=== PATIENT | female | born 1990 | race Caucasian/White ===

== ENCOUNTER 2021-03-20 12:01 | Emergency (ER) | payer OTHER, SELFPAY ==
[2021-03-20] VITALS (9 sets, daily range): BP systolic 112–138; BP diastolic 63–82; PULSE 90–105; RESP 15–23; TEMP 36.8; O2SAT 95–99; BMI 33.4
[2021-03-20 13:30] LABS: Amorphous Sediment Urine 1+; Bacteria Urine None Seen; Calcium Oxalate Crystals Urine Moderate; Culture Indicated Urine Cult Not Indicated; Mucus Urine 1+ (Negative); RBC Urine None Seen (0-5/HPF); Squamous Epithelial Cell Urine 1-5 /HPF (0-5/HPF); WBC Urine 0-1/HPF (0-5/HPF)
[2021-03-20] MEDS: ONDANSETRON 4 MG/2 ML INJ IV (13:37)
[2021-03-20 14:09] LABS: Add Manual Diff / Slide Review NO; Basophils Absolute Auto 0 /uL (0-100); Basophils Percent Auto 0.2 % (0-2); Eosinophils Absolute Auto 100 /uL (0-450); Eosinophils Percent Auto 0.3 % (2-4); Hematocrit 37.3 % (36-46); Lymphocytes Absolute Auto 900 /uL (1100-4500); Lymphocytes Percent Auto 4.9 % (25-40); Mean Corpuscular HGB Conc 32.1 % (30-36); Mean Corpuscular Hemoglobin 25.7 PG (26-34); Monocytes Absolute Auto 800 /uL (0-900); Monocytes Percent Auto 4.2 % (3-14); Neutrophils Absolute Auto 17400 /uL (1500-7000); Neutrophils Percent Auto 90.4 % (50-75); Platelet Count 324 X10^3/uL (150-400); Red Blood Cell Count 4.67 X10^6/uL (4.0-5.2); Red Cell Distribution Width 15.5 % (11.6-14.8); White Blood Cell Count 19.3 X10^3/uL (4.5-11.0)
[2021-03-20 14:17] LABS: Alanine Aminotransferase 11 IU/L (<35); Albumin 4.2 g/dL (3.5-5.0); Albumin Globulin Ratio 1.4 (1.0-2.8); Alkaline Phosphatase 72 U/L (38-126); Aspartate Aminotransferase 18 IU/L (14-36); BUN Creatinine Ratio 21.1 (6-22); Bilirubin Total 0.3 mg/dL (0.2-1.3); Blood Urea Nitrogen 12 mg/dL (7-17); Calcium 9.5 mg/dL (8.4-10.2); Carbon Dioxide 28 mmol/L (22-32); Chloride 102 mmol/L (98-107); Estimated Glomerular Filt Rate > 60.0 mL/min (>60); Globulin 3.1 g/dL (1.7-4.1); Glucose 120 mg/dL (70-100); HEMOLYSIS < 15 (0-50); Lipase 38 U/L (23-300); Potassium 4.5 mmol/L (3.4-5.1); Sodium 137 mmol/L (137-145); Total Protein 7.3 g/dL (6.3-8.2)
--- NOTE | 2021-03-20 15:24 | ED_ITS ---
HPI - Abdominal Pain General Chief Complaint: Abdominal Pain Stated Complaint: ABD Pain upper & lower Time Seen by Provider: 03/20/21 15:24 Source: patient Mode of arrival: Ambulatory Limitations: no limitations History of Present Illness HPI narrative: This is a 31-year-old female comes emergency department complaint of abdominal pain. Patient states she has had symptoms starting yesterday morning at 7:00 a.m. into today. Started out as generalized aching but has intermittently been twisting and worsening pain. Sort of throughout her entire abdomen. She has not had fevers or chills. She has had nausea and some dry heaves. She has had normal bowel movement in the last 24 hours. No black or bloody stools. No dysuria or frequency but she has had a sense of incomplete emptying. She states it just feels like there is pressure on top of her bladder. She also notes that when she has a bowel movement she has pain in her abdomen but not at the rectum. Patient notes she has had some increased discharge but no odor or change in coloration. She has not had any vaginal bleeding. She is about 14 months and had a at that time. She does have a history of ulcerative colitis. She states her last bad flare was in her 20s and was similar pain but she does recall if it was exactly like this. She is on mesalamine daily. Patient denies any allergies. No other surgeries. No to bacco, alcohol and occasionally uses THC but no other illicit drugs. Related Data Previous Rx's Medication Instructions Recorded doxycycline hyclate 100 mg tablet 100 mg PO BID #20 tab 03/20/21 hydrocodone 5 mg-acetaminophen 325 1 tab PO Q6H PRN #10 tab 03/20/21 mg tablet Allergies Allergy/AdvReac Type Severity Reaction Status Date / Time No Known Drug Allergies Allergy Verified 03/20/21 12:11 Review of Systems Review of Systems ROS Unobtainable: All systems reviewed & are unremarkable except as noted in HPI and below Patient History Social History Smoking Status: Unknown if ever smoked Smoking Status: Unknown if ever smoked alcohol intake frequency: holidays/special occasions only Substance Use Type: does not use Exam Narrative Exam Narrative: GENERAL: Alert and oriented x three, female in moderate distress. HEENT: Head normocephalic, atraumatic, EOMI, pupils reactive, face symmetric, m oist mucous membranes NECK: Supple, full range of motion CARDIOVASCULAR: Regular rate and rhythm without murmurs, rubs or gallops. RESPIRATORY: Breath sounds equal bilaterally, no wheezes rales or rhonchi. ABDOMEN: Soft, generalized tenderness. Normoactive bowel sounds all 4 quadrants. No guarding or rebound, rigidity, no mass : No CVA tenderness. Female: externa vaginal examl normal, no vaginal bleeding, positive for thick yellow discharge, no cervical motion tenderness, normal speculum exam, no adnexal tenderness/mass. Bimanual exam is normal, no enlarged uterus but patient does have midline uterine tenderness. She does not seem to be more tender on the left in compared to midline or right. Non-gravid. EXTREMITIES: Normal range of motion, no clubbing or edema. Neurovascularly i ntact NEUROLOGICAL: Cranial nerves II through XII grossly intact. Moving all extremities SKIN: Warm, dry, no petechiae, no rashes or lesions. Initial Vital Signs Initial Vital Signs: Vital Signs Temperature 98.2 F 03/20/21 12:09 Pulse Rate 105 H 03/20/21 12:09 Respiratory Rate 15 03/20/21 12:09 Blood Pressure 115/65 03/20/21 12:09 Pulse Oximetry 99 03/20/21 12:09 Course Orders Ordered: Discontinued Medications Ceftriaxone Sodium (Ceftriaxone 500 Mg Vial) 500 mg IM NOW ONE Stop: 03/20/21 17:10 Last Admin: 03/20/21 17:35 Dose: 500 mg Documented by: TESSIE Doxycycline Hyclate (Doxycycline Hyclate 100 Mg Tablet) 100 mg PO NOW ONE Stop: 03/20/21 17:10 Last Admin: 03/20/21 17:21 Dose: 100 mg Documented by: TESSIE Sodium Chloride (Normal Saline 0.9%) 1,000 mls @ 1,000 mls/hr IV BOLUS ONE Stop: 03/20/21 16:31 Last Infusion: 03/20/21 17:23 Dose: 0 mls/hr Documented by: Admin: 03/20/21 15:40 Dose: 1,000 mls/hr Documented by: JEFFREY Ketorolac Tromethamine (Ketorolac 30 Mg/Ml Vial) 30 mg IV NOW ONE Stop: 03/20/21 15:33 Last Admin: 03/20/21 15:40 Dose: 30 mg Documented by: JEFFREY Metronidazole (Metronidazole 500 Mg Tablet) 2,000 mg PO NOW ONE Stop: 03/20/21 17:10 Last Admin: 03/20/21 17:20 Dose: 2,000 mg Documented by: TESSIE Ondansetron HCl (Ondansetron 4 Mg/2 Ml Inj) 4 mg IV NOW ONE Stop: 03/20/21 12:14 Last Admin: 03/20/21 13:37 Dose: 4 mg Documented by: TESSIE Reevaluation(s) Reevaluation #1: Patient feels improved after Toradol. We reviewed her labs, urine and CT imaging. She has a cyst on her left ovary but has generalized abdominal pain. She had mention an increase in discharge although no new changes to her discharge in terms of odor or color. After discussion we decided to do pelvic exam for evaluation. We also discussed and she notes that she may have had sexual contact that could have potentially resulted in a STI. On exam patient did have can changes consistent with possible infection and was covered with antibiotics. Vital Signs Vital signs: Vital Signs - 8 hr 03/20/21 12:09 03/20/21 13:44 03/20/21 13:45 Temperature 98.2 F Pulse Rate 105 H 101 H 101 H Respiratory Rate 15 Blood Pressure 115/65 118/65 Pulse Oximetry 99 95 95 03/20/21 14:00 03/20/21 14:30 03/20/21 15:51 Temperature Pulse Rate 100 H 96 H 102 H Respiratory Rate 22 23 20 Blood Pressure 112/65 114/63 112/65 Pulse Oximetry 97 98 99 03/20/21 16:00 03/20/21 16:30 03/20/21 17:41 Temperature Pulse Rate 90 99 H 91 H Respiratory Rate 15 20 20 Blood Pressure 112/82 138/75 Pulse Oximetry 97 98 99 MDM - Abdominal Pain Lab Data Result diagrams: 03/20/21 13:30 03/20/21 13:30 Labs: Lab Results 03/20/21 03/20/21 03/20/21 Range/Units 12:24 13:30 13:30 WBC 19.3 H (4.5-11.0) X10^3/uL RBC 4.67 (4.0-5.2) X10^6/uL Hgb 12.0 (12.0-16.0) g/dL Hct 37.3 (36-46) % MCV 80.0 (80-100) fL MCH 25.7 L (26-34) PG MCHC 32.1 (30-36) % RDW 15.5 H (11.6-14.8) % Plt Count 324 (150-400) X10^3/uL Neut % (Auto) 90.4 H (50-75) % Lymph % (Auto) 4.9 L (25-40) % [place] % (Auto) 4.2 (3-14) % Eos % (Auto) 0.3 L (2-4) % Baso % (Auto) 0.2 (0-2) % Neut # (Auto) 28078 H (2133-8747) /uL Lymph # (Auto) 900 L (6554-5553) /uL [place] # (Auto) 800 (0-900) /uL Eos # (Auto) 100 (0-450) /uL Baso # (Auto) 0 (0-100) /uL Sodium 137 (137-145) mmol/L Potassium 4.5 (3.4-5.1) mmol/L Chloride 102 (98-107) mmol/L Carbon Dioxide 28 (22-32) mmol/L BUN 12 (7-17) mg/dL Creatinine 0.57 (0.52-1.04) mg/dL Estimated GFR > 60.0 (>60) mL/min BUN/Creatinine Ratio 21.1 (6-22) Glucose 120 H (70-100) mg/dL Lactate (0.7-2.1) mmol/L Calcium 9.5 (8.4-10.2) mg/dL Total Bilirubin 0.3 (0.2-1.3) mg/dL AST 18 (14-36) IU/L ALT 11 (<35) IU/L Alkaline Phosphatase 72 (38-126) U/L Total Protein 7.3 (6.3-8.2) g/dL Albumin 4.2 (3.5-5.0) g/dL Globulin 3.1 (1.7-4.1) g/dL Albumin/Globulin Ratio 1.4 (1.0-2.8) Lipase 38 (23-300) U/L Urine RBC None seen (0-5/HPF) Urine WBC 0-1/hpf (0-5/HPF) Ur Squamous Epith Cells 1-5 /hpf (0-5/HPF) Calcium Oxalate Crystal Moderate H Amorphous Sediment 1+ Urine Bacteria None seen (None) Urine Mucus 1+ H (Negative) Ur Culture Indicated? Cult not indicated 03/20/21 Range/Units 13:30 WBC (4.5-11.0) X10^3/uL RBC (4.0-5.2) X10^6/uL Hgb (12.0-16.0) g/dL Hct (36-46) % MCV (80-100) fL MCH (26-34) PG MCHC (30-36) % RDW (11.6-14.8) % Plt Count (150-400) X10^3/uL Neut % (Auto) (50-75) % Lymph % (Auto) (25-40) % [place] % (Auto) (3-14) % Eos % (Auto) (2-4) % Baso % (Auto) (0-2) % Neut # (Auto) (8853-5865) /uL Lymph # (Auto) (6687-1330) /uL [place] # (Auto) (0-900) /uL Eos # (Auto) (0-450) /uL Baso # (Auto) (0-100) /uL Sodium (137-145) mmol/L Potassium (3.4-5.1) mmol/L Chloride (98-107) mmol/L Carbon Dioxide (22-32) mmol/L BUN (7-17) mg/dL Creatinine (0.52-1.04) mg/dL Estimated GFR (>60) mL/min BUN/Creatinine Ratio (6-22) Glucose (70-100) mg/dL Lactate 1.0 (0.7-2.1) mmol/L Calcium (8.4-10.2) mg/dL Total Bilirubin (0.2-1.3) mg/dL AST (14-36) IU/L ALT (<35) IU/L Alkaline Phosphatase (38-126) U/L Total Protein (6.3-8.2) g/dL Albumin (3.5-5.0) g/dL Globulin (1.7-4.1) g/dL Albumin/Globulin Ratio (1.0-2.8) Lipase (23-300) U/L Urine RBC (0-5/HPF) Urine WBC (0-5/HPF) Ur Squamous Epith Cells (0-5/HPF) Calcium Oxalate Crystal Amorphous Sediment Urine Bacteria (None) Urine Mucus (Negative) Ur Culture Indicated? Point of care testing: Point of Care Testing Test Results Negative Urine Dip Bedside Urine Glucose Negative Bedside Urine Bilirubin - Negative Bedside Urine Ketone - Negative Urine Specific [place] 1.030 Bedside Urine Occult Blood - Negative Bedside Urine pH 6.0 Bedside Urine Protein +/- 15 Bedside Urine Urobilinogen - Negative Bedside Urine Nitrite - Negative Bedside Urine Leukocytes - Negative Esterase Imaging Data CT scan - abdomen/pelvis: Radiologist's Impression: Karen Gleason??31??F??1990 ? Allergy/Adv: No Known Drug Allergies (More??) Close Abdomen/Pelvis CT (Signed) [facility] - 03/20/21 [place] [address] CT Scan Report Signed Patient: Karen Gleason MR#: [id number] : 1990 Acct:[id number] Age/Sex: 31 / F Date of Service: 03/20/21 Loc: ED Accession Number: [id number] ?? Procedure: CT abdomen pelvis w con Ordering Provider: Christina Quiroz D.O. PROCEDURE:? CT ABDOMEN PELVIS W CON ? INDICATIONS:? abd pain, hx UC ? TECHNIQUE:? After the administration of oral and IV contrast, axial sections were acquired from the lung bases to the pubic symphysis.? Coronal and sagittal reformats were performed.? For radiation dose reduction, the following was used:? automated exposure control, adjustment of mA and/or kV according to patient size. ? COMPARISON:? None. ? FINDINGS:? Image quality:? Excellent.? ? Lung bases:? Clear.? ? Heart:? No significant findings. ? ? ABDOMEN: Liver:? Unremarkable.? ? Gallbladder:? Unremarkable.? ? Biliary ducts:? Unremarkable.? ? Pancreas:? Unremarkable.? ? Spleen:? Unremarkable.? ? Adrenal Glands:? Unremarkable.? ? Kidneys and Ureters:? Unremarkable.? ? ? Stomach and Bowel:? Mild gastric antral thickening, which could be caused by artifact.? Stomach, small bowel loops, and colon are normal in caliber.? No colonic wall thickening. ?Normal appendix. Peritoneum:? No abnormal intraperitoneal fluid.? No free air.? ? Ventral Wall: ? No hernia.? Abdominal Nodes:? No retroperitoneal or mesenteric adenopathy by size criteria.? Vessels:? Aorta and inferior vena cava are normal in size.? ? PELVIS: Pelvic Organs:? Uterus is normal with an IUD.? There is a 3.5 x 4.3 cm cyst in the left ovary.? Right ovary is normal.? Trace amount of free fluid in the cul-de-sac is likely within physiological limits.? ? Bladder:? Unremarkable.? ? Pelvic Nodes: No enlarged lymph nodes.? Miscellaneous: No inguinal hernias are seen. ? ? ? Bones:? Unremarkable.? IMPRESSION:? ? 1. No CT findings to suggest acute colitis. 2. A 3.5 x 4.3 cm cyst in the left ovary.? Pelvic ultrasound follow-up is suggested. ? ? ? Dictated by: Rianna Abbott M.D. on 03/20/2021 at 15:53 ? ? Approved by: Rianna Abbott M.D. on 03/20/2021 at 16:03?? [facility] Narrative Medical decision making narrative: 31-year-old female comes with complaint of generalized abdominal pain. Patient has a history of ulcerative colitis. She is unsure if this is similar to her typical symptoms. She has had some nausea and vomiting as well. Patient on exam has generalized tenderness. She did note an increase in her discharge vaginally but no other changes and has had some diarrhea as well. Labs are concerning with a white count of 19. Patient CT shows what appears to be left ovarian cyst but no other significant changes. Urine is negative. Labs do not show any other acute changes. Discussed and pelvic exam was performed. Patient does have quite a bit discharge and there is potential for infectious causes so she was covered with antibiotics. Patient is nontender with palpation of the cervix she does have tenderness of the uterus but does not have increased adnexal tenderness on the left or right in comparison to midline. My suspicion for tubo-ovarian abscess is much lower and her pain has been well controlled here in the department. Return precautions were discussed. All questions answered. Discharge Plan Departure Patient Disposition: Home Clinical Impression: Cervicitis Instructions: DI for Acute Cervicitis Activity Restrictions/Additional Instructions: Your labs and imaging today show a ovarian cyst on the left but no other clear causes of your pain. On exam it does appear you likely have a pelvic infection causing her symptoms. Cultures are pending these typically take 48-72 hours to result. If you are not covered with the appropriate antibiotics he will be contacted and have additional antibiotics prescribed. You should follow-up for ultrasound of your ovarian cyst. Take antibiotics until completely gone. You may take pain medication as prescribed. This medication can make you sleepy do not drive, perform hazardous activities or make any major decisions while taking it. This medication will make you constipated please take a stool softener once to twice daily until stools are soft and regular. Prescription sent to [facility] in [place]. Please return for fevers, new or worsening abdominal, back or pelvic pain, persistent vomiting, lightheadedness or passing out or other new or concerning symptoms. Prescriptions: New doxycycline hyclate 100 mg tablet 100 mg PO BID Qty: 20 0RF hydrocodone-acetaminophen 5-325 mg tablet 1 tab PO Q6H PRN (Reason: pain) Qty: 10 0RF Referrals: Ronaldo Forrester MD [Primary Care Provider] -
--- NOTE | 2021-03-20 15:32 | DI.CT.S_ITS ---
PROCEDURE: CT ABDOMEN PELVIS W CON INDICATIONS: abd pain, hx UC TECHNIQUE: After the administration of oral and IV contrast, axial sections were acquired from the lung bases to the pubic symphysis. Coronal and sagittal reformats were performed. For radiation dose reduction, the following was used: automated exposure control, adjustment of mA and/or kV according to patient size. COMPARISON: None. FINDINGS: Image quality: Excellent. Lung bases: Clear. Heart: No significant findings. ABDOMEN: Liver: Unremarkable. Gallbladder: Unremarkable. Biliary ducts: Unremarkable. Pancreas: Unremarkable. Spleen: Unremarkable. Adrenal Glands: Unremarkable. Kidneys and Ureters: Unremarkable. Stomach and Bowel: Mild gastric antral thickening, which could be caused by artifact. Stomach, small bowel loops, and colon are normal in caliber. No colonic wall thickening. Normal appendix. Peritoneum: No abnormal intraperitoneal fluid. No free air. Ventral Wall: No hernia. Abdominal Nodes: No retroperitoneal or mesenteric adenopathy by size criteria. Vessels: Aorta and inferior vena cava are normal in size. PELVIS: Pelvic Organs: Uterus is normal with an IUD. There is a 3.5 x 4.3 cm cyst in the left ovary. Right ovary is normal. Trace amount of free fluid in the cul-de-sac is likely within physiological limits. Bladder: Unremarkable. Pelvic Nodes: No enlarged lymph nodes. Miscellaneous: No inguinal hernias are seen. Bones: Unremarkable. IMPRESSION: 1. No CT findings to suggest acute colitis. 2. A 3.5 x 4.3 cm cyst in the left ovary. Pelvic ultrasound follow-up is suggested. Dictated by: Rianna Abbott M.D. on 03/20/2021 at 15:53 Approved by: Rianna Abbott M.D. on 03/20/2021 at 16:03
[2021-03-20] MEDS: KETOROLAC 30 MG/ML VIAL IV (15:40)
[2021-03-20] MEDS: SODIUM CHLORIDE 0.9% 1,000 ML 1000 ML IV (15:40)
[2021-03-20] MEDS: metroNIDAZOLE 500 MG TABLET 2000 MG PO (17:20)
[2021-03-20] MEDS: DOXYCYCLINE HYCLATE 100 MG TABLET PO (17:21)
[2021-03-20] MEDS: cefTRIAXone 500 MG VIAL IM (17:35)
[2021-03-23 19:39] LABS: Chlamydia trachomatis Negative (Negative); Mycoplasma genitalium Negative (Negative); Neisseria gonorrhoeae Negative (Negative)
== END 2021-03-20 17:42 | disposition home or self-care (01) ==
PROVIDERS: Emergency Provider Emergency Medicine; PCP Internal Medicine
DX: N72 Inflammatory disease of cervix uteri (principal); N83.202 Unspecified ovarian cyst, left side
CPT/HCPCS: 36415; 74177; 80053; 81003; 81015; 81025; 83605; 83690; 85025; 87040; 87070; 87205; 87210; 87491; 87563; 87591; 96361; 96372; 96374; 96375; 99284; 99285; J0696; J1885; J2405